=== PATIENT | female | born 1980 | race Caucasian/White ===

== ENCOUNTER 2017-03-27 09:36 | Outpatient (CLI) | payer BC ==
--- NOTE | 2017-03-27 15:11 | RAD ---
HYSTEREOSALPINGOGRAM: DATE: 03/27/17. HISTORY: Infertility. Assess tubal patency. FINDINGS: Jig Boring Machine Set Up Operator imaging of the pelvis is unremarkable. The uterus was catheterized using balloon catheter technique under sterile conditions. Contrast med ia is injected into the uterus outlining a normal uterine cavity and outlining normal-appearing bila teral fallopian tubes. There is prompt spill into the peritoneal cavity on the right. There is markedly delayed but eventu al spill from the left tube as well. IMPRESSION: Bilateral fallopian tubes are patent. There is preferential spill from the right tube with delayed spill on the left. POS: [facility]
[2017-03-27] MEDS ORDERED: Iopamidol 300 61% 30 ML VIAL ONE (15:51)
== END 2017-03-27 09:37 | disposition home or self-care (01) ==
LOC: RAD 09:36
PROVIDERS: ATTEND Student in an Organized Health Care Education/Training Program
DX: N97.9 Female infertility, unspecified (principal)
CPT/HCPCS: 58340; 74740

== ENCOUNTER 2017-05-04 09:08 | Outpatient (CLI) | payer BC ==
--- NOTE | 2017-05-04 10:31 | MRI ---
MRI LUMBAR SPINE: HISTORY: Lumbar radiculopathy, M54.16. TECHNIQUE: Multiplanar, multisequence noncontrast-enhanced MRI images of lumbar spine obtained. FINDINGS: T12-l1, L1-2, L2-3, L3-4, L4-5, L5-S1: Unremarkable. No evidence of disk herniations, spinal stenosis, or neural foraminal narrowing is seen. No signific ant evidence of osseous or disk pathology is seen. IMPRESSION: Normal MRI lumbar spine without evidence of significant lumbar spine pathology. POS: [facility]
== END 2017-05-04 09:09 | disposition home or self-care (01) ==
LOC: TBSIIMAG 09:08
PROVIDERS: ATTEND Neurological Surgery
DX: M54.16 Radiculopathy, lumbar region (principal)
CPT/HCPCS: 72148

== ENCOUNTER 2019-04-17 13:43 | Outpatient (CLI) | payer BC ==
[~2019-04-17 13:43] MED LIST: Magnevist 469MG/ML 20 ML VIAL ONE
--- NOTE | 2019-04-17 16:45 | MRI ---
BRAIN MRI WITH AND WITHOUT CONTRAST: 04/17/19 COMPARISON: 10/13/16 HISTORY: Re-evaluate benign neoplasm of pituitary gland. TECHNIQUE: Multiplanar and multisequence MR imaging of the brain is obtained with and without contrast using a p ituitary mass protocol. FINDINGS: There are numerous areas of cystic change in the region of the bilateral thalami and mid brain sugges ting numerous markedly prominent Virchow-Ramos spaces, slightly more conspicuous when compared to the study performed in 2017. The largest such cystic intra-axial lesions are seen within the dorsal aspe ct of the mid brain, right greater than left, measuring approximately 1.1 cm in AP dimension, minimal ly enlarged since the prior exam. There is slight narrowing of the third ventricle in this region. T he atria of the lateral ventricles are slightly enlarged when compared to the prior examination and t he frontal horns of the lateral ventricles are mildly prominent when compared to the prior examinatio n. This may reflect a mild degree of ventriculomegaly associated with compression of the third ventri macario secondary to the cystic mid brain lesions. The regional bone marrow signal intensity appears with in normal limits. The diffusion weighted imaging demonstrates no evidence for acute infarction. As seen on the prior examination, there is a subcentimeter hypoenhancing lesion within the posterolat eral aspect of the anterior lobe of the pituitary gland on the right measuring 3 mm, stable when comp ared to the prior examination. No abnormal intra-axial enhancement. IMPRESSION: 1. Findings suggesting a stable small right sided pituitary microadenoma. 2. Severely dilated Virchow-Ramos spaces in the brainstem and bilateral thalami, slightly more c onspicuous than on the prior examination. The lateral ventricles are slightly more prominent than on the prior examination which may be related to a degree of third ventricular compression associated wi th the above described dilated Virchow-Ramos spaces. Clinical correlation for degree of obstructive h ydrocephalus is thus required. Code T POS: OFF
== END 2019-04-17 13:44 | disposition home or self-care (01) ==
LOC: TBSIIMAG 13:43
PROVIDERS: ATTEND Neurological Surgery
DX: D35.2 Benign neoplasm of pituitary gland (principal); G93.89 Other specified disorders of brain
CPT/HCPCS: 70553; A9579

== ENCOUNTER 2019-06-19 08:08 | Outpatient (CLI) | payer BC ==
[2019-06-19 17:37] LABS: Hemoglobin 12.3 g/dL (12.0-16.0); Mean Corpuscular HGB CONC 31.4 g/dL (32.0-36.0); Mean Corpuscular Volume 86.1 fL (78.0-98.0); Mean Platelet Volume 7.8 fL (7.4-10.4); Platelet Count 294 thou/uL (130-400); Red Blood Cell (RBC) Count 4.56 mill/uL (4.20-5.40); White Blood Cell (WBC) Count 10.9 thou/uL (4.8-10.8)
[2019-06-19 17:44] LABS: Prothrombin Time 12.8 SEC (12.0-14.7)
== END 2019-06-19 08:09 | disposition home or self-care (01) ==
LOC: LABBT 08:08
PROVIDERS: ATTEND Neurological Surgery
DX: Z01.812 Encounter for preprocedural laboratory examination (principal); G91.9 Hydrocephalus, unspecified
CPT/HCPCS: 85027; 85610; 85730

== ENCOUNTER 2019-06-19 16:30 | Inpatient (IN) | payer BC ==
[2019-06-24] MEDS ORDERED: Lidocaine 0.5%/Epinephrine 1:200,000 50 ml Vial ONE (06:09)
[2019-06-24] MEDS ORDERED: Bacitracin Zinc Ointment 30 gm TUBE ONE (06:10)
[2019-06-24] MEDS ORDERED: Thrombin 5000 UNITS/5 ML VIAL ONE (06:10)
[2019-06-24] MEDS ORDERED: Midazolam HCl 2 mg/2 ml Vial ONE (06:25)
[2019-06-24] MEDS ORDERED: Scopolamine 1.5 mg/72 hour Patch ONE (06:33)
[2019-06-24] MEDS ORDERED: Fentanyl 100 MCG/2 ML VIAL ONE ×5 (06:39→11:31)
--- NOTE | 2019-06-24 07:19 | HP ---
CHIEF COMPLAINT: "I'm here for my third ventriculostomy." HISTORY OF PRESENT ILLNESS: Rashida is a 38-year-old woman, who has been followed for 8 years. In 2010, she was diagnosed with a lesion in her pituitary. She was treated with cabergoline, tumor shrank and stabilized. It has been stable for the last 8 years. She was asymptomatic from it. Ms. Bashir's current image shows ventricles have slowly enlarged in size and have fluid-filled spaces in her midbrain. There is enlarged Virchow-Ramos spaces progression. PAST MEDICAL HISTORY: Ms. Bashir's medical history is brain cyst, Andrew's thyroid, pituitary tumor, hypothyroidism, and carpal tunnel on the right. PAST SURGICAL HISTORY: In 2011, right carpal tunnel, wisdom teeth at the age of 15 and 16. FAMILY HISTORY: Father alive, diagnosed with diabetes. Mother alive, not stated. SOCIAL HISTORY: She drinks alcohol socially. She does not have children. She is . She drinks caffeine. She never smoked. She is sexually active. MEDICATIONS: 1. Synthroid 175 mcg. 2. Cabergoline 0.5 mg 2.5 tabs once a week. 3. Wellbutrin. 4. Sudafed. 5. Meclizine. REVIEW OF SYSTEMS: CONSTITUTIONAL: Denies fevers, chills, weight loss, night sweats, or loss of energy. HEENT: Denies double vision, blurred vision, or difficulty swallowing. CARDIOVASCULAR/RESPIRATORY: Denies chest pain, shortness of breath, or cough. GASTROINTESTINAL: Denies indigestion, vomiting, or black stool. GENITOURINARY: Denies burning urination, blood in urine, or incontinence. MUSCULOSKELETAL: Denies leg or arm pain. NEUROLOGICAL: No cranial neuropathy noted. Visual lopez are full. Extraocular muscles move the eye in all direction of gaze without nystagmus. The face is sensated and symmetric. Ears work normally. Palate moves normal. The tongue moves normally. There are no lateralization, motor or sensory deficits. There is no pronator drift. There is no neglect. PSYCHIATRIC: Denies anxiety, hallucinations, personality changes or crying. PHYSICAL EXAMINATION: VITAL SIGNS: Weight is 222, height 64 inches. ALLERGIES: N.K.D.A. IMAGING DATA: Increase in size of fluid-filled spaces in the thalamus of her midbrain and now into the asad. There is marked difference from 2011. Now, the ventricles are larger, especially the lateral and third ventricles. The fourth ventricle is about the same size. ASSESSMENT: Ms. Bashir has hydrocephalus and form involves enlargement of her Virchow-Ramos spaces in the brain itself as well as the ventricles. 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 PLAN: Surgical intervention for third ventriculostomy. Informed consent discussed with the patient, indications, risks, benefits, alternatives, and expected outcomes from endoscopic third ventriculostomy. The risks that were discussed include, but were not limited to, bleeding, brain damage, stroke, paralysis, seizures, blindness, loss of short-term memory, loss of speech, loss of other significant neurological functions, dependent for care, cardiopulmonary, complications of anesthesia, and . Job ID: [id number] [facility]
[2019-06-24] MEDS ORDERED: Promethazine HCl 12.5 MG SUPP PR PRN (09:29)
[2019-06-24] MEDS ORDERED: Promethazine 25 MG TAB PO PRN (09:29)
[2019-06-24] MEDS ORDERED: Acetaminophen 650 MG Suppository PR PRN (09:29)
[2019-06-24] MEDS ORDERED: Cepastat Lozenges 1 LOZ PO PRN (09:29)
[2019-06-24] MEDS ORDERED: diphenhydrAMINE 50 MG/ML VIAL IVP PRN (09:29)
[2019-06-24] MEDS ORDERED: hydrALAZINE 20 MG/ML VIAL SLOW IVP PRN (09:29)
[2019-06-24] MEDS ORDERED: diphenhydrAMINE 50 MG CAP PO PRN (09:29)
[2019-06-24] MEDS ORDERED: Promethazine HCl 25 MG/ML VIAL IM PRN ×2 (09:29→09:44)
[2019-06-24] MEDS ORDERED: Labetalol HCl 100 MG/20 ML VIAL SLOW IVP PRN (09:29)
[2019-06-24] MEDS ORDERED: Promethazine HCl 25 MG/ML VIAL SLOW IVP PRN (09:44)
[2019-06-24] MEDS ORDERED: PACU-Morphine 4MG/ML VIAL SLOW IVP PRN (09:44)
[2019-06-24] MEDS ORDERED: HYDROmorphone 2 MG/ML VIAL SLOW IVP PRN (09:44)
[2019-06-24] MEDS ORDERED: Morphine Sulfate 2 MG/ML SYRINGE SLOW IVP PRN (09:44)
[2019-06-24] MEDS ORDERED: Ondansetron HCl/PF 4 MG/2 ML Vial IVP PRN (09:44)
[2019-06-24] MEDS ORDERED: Promethazine HCl 25 MG/ML VIAL ONE (10:23)
--- NOTE | 2019-06-24 11:30 | OP ---
DATE OF PROCEDURE: 06/24/2019 MANUFACTURING INTERN: Danilo Coburn PA-C PREOPERATIVE INDICATION: Prevent neurological deterioration. PREOPERATIVE DIAGNOSES: 1. Aqueductal stenosis. 2. Enlargement of brain perivascular spaces with cerebrospinal fluid. 3. Hydrocephalus variant. POSTOPERATIVE DIAGNOSES: 1. Aqueductal stenosis. 2. Enlargement of brain perivascular spaces with cerebrospinal fluid. 3. Hydrocephalus variant. OPERATIVE PROCEDURES: 1. Endoscopic third ventriculostomy. 2. Placement of external ventricular drain. 3. [employer] stereotactic navigation. PREOPERATIVE MEDICATION: Ancef 2 g IV. DRAIN NUMBER: One. DRAIN TYPE: External ventricular. OPERATIVE DICTATION: The patient was brought to the operating room. General endotracheal anesthesia was induced. The patient was positioned supine on the operating table and her head immobilized with Castrejon pin and supervisor heading. Using the [facility] system and a [facility] protocol, CT scan done before surgery. We mapped the patient's surface to create 3-dimensional navigational space around her head. We verified our registration with surface landmarks and found it to be very accurate. We planned a jaxon hole in line with the mid portion of the pupil on the right side just at the coronal suture. We removed hair over this part of the scalp. We infused local anesthetic in our planned incisions. The scalp was sterilely prepped and draped. We opened a curvilinear incision with a small flap facing forward. We controlled bleeding with bipolar and monopolar cautery. We dissected to the periosteal layer and placed a self-retaining retractor beneath the flap. Using a high-speed drill and a perforating bit, we placed a jaxon hole right at the coronal suture. We waxed the bone edges and then coagulated the dura. The dura was incised in a cruciate fashion and we opened, exposing the brain and agustín beneath, where there was an avascular space of agustín. We gently coagulated it and then incised the agustín. Using our [facility] navigation wand, we chose our trajectory to access the frontal horn of the right lateral ventricle. We navigated as we introduced our ventricular sheath into the right lateral ventricle. There was brisk CSF flow. We brought our neuroendoscope and passed it through the sheath into the ventricular system. We advanced the sheath within a few millimeters of the foramen of Monro, and then stapled the sheath to either side of our exposure. We then reintroduced the brain scope. The brain scope made its way easily through the foramen of Monro into the third ventricle. The mammillary bodies were easily visualized as was the infundibular recess. There was a thin portion of the floor of the third ventricle between the infundibular recess and the mamillary bodies, through which we could see. I did not see any vessels beneath. When alligator-shaped instrument was advanced through the endoscope to the floor of the third ventricle, it was passed through the floor, the mouths were widened and then it was withdrawn. This was done in a 360-degree fashion to create an ample third ventriculostomy. The scope was then advanced through the third ventriculostomy just enough to see the basilar artery, the front of the asad in the fact there were no obstructions to CSF flow in the prepontine cistern. The scope was then removed, and we measured using our sheath the distance to the foramen of Monro, which was about 6 cm from the skull surface. An external ventricular drain was advanced to the appropriate depth and then the sheath was withdrawn. This drain was tunneled posteriorly through a separate stab incision and connected to the Blanco drainage device. We irrigated copiously with bacitracin irrigation. A tiny amount of blood emanated through the ventricular drain, but it washed away very quickly within seconds. There was no further blood in the CSF that we could visualize. We placed a jaxon hole cover over the jaxon hole we had created. We irrigated with bacitracin irrigation. We closed the wound in anatomical layers and we tacked down the external ventricular drain at the exit point. We placed a sterile dressing and wrapped the head. We ensured the Blanco drainage system had brisk CSF flow before waking the patient. Job ID: [id number]
[2019-06-24] MEDS: Morphine 2 MG/ML SYRINGE SLOW IVP PRN ×6 (12:48→22:58)
[2019-06-24] MEDS: Sodium Chloride 0.9% 1,000 ML IV SCH ×2 (12:51→21:52)
[2019-06-24 13:02] VITALS: BMI 38.3
[2019-06-24] MEDS: Acetaminophen 325 MG TAB PO PRN ×2 (13:27→22:35)
[2019-06-24] MEDS: CEFAZOLIN 2 GM in Premix Bag 1 BAG IVPB SCH ×2 (13:49→21:16)
[2019-06-24] MEDS ORDERED: Lidocaine 1% PF 5 ML VIAL ONE ×2 (14:38)
[2019-06-24] MEDS ORDERED: Glycopyrrolate 0.2 MG/ML 5 ML SYRINGE ONE (14:38)
[2019-06-24] MEDS ORDERED: Rocuronium Bromide 10 MG/ML (10ML VIAL) ONE (14:38)
[2019-06-24] MEDS ORDERED: Esmolol 100 MG/10 ML VIAL ONE (14:38)
[2019-06-24] MEDS ORDERED: Dexamethasone 20 MG/5 ML VIAL ONE (14:38)
[2019-06-24] MEDS ORDERED: Ondansetron PF 4 MG/2 ML Vial ONE (14:38)
[2019-06-24] MEDS ORDERED: PROPOFOL 200 MG/20 ML VIAL ONE (14:38)
[2019-06-24] MEDS: Ondansetron PF 4 MG/2 ML Vial IVP PRN (17:39)
[2019-06-25] MEDS: Morphine 2 MG/ML SYRINGE SLOW IVP PRN ×2 (00:04→14:09)
--- NOTE | 2019-06-25 01:26 | CON ---
DATE OF CONSULTATION: 06/24/2019 HISTORY OF PRESENT ILLNESS: Rashida Bashir is a pleasant 38-year-old female who had an external ventricular drain placed today. She has a history of having a pituitary tumor according to her that has been followed for many years. She recently developed ventriculomegaly, so surgery was recommended. PAST MEDICAL HISTORY: Remarkable for Andrew thyroiditis, pituitary tumor, hypothyroidism, and carpal tunnel syndrome on the right in 2011. FAMILY HISTORY: There is family history of diabetes. SOCIAL HISTORY: Drinks occasionally. She is nonsmoker. She is . Her is in the room, very pleasant, cooperative. MEDICATIONS: Prior to admission, she is on; 1. Synthroid. 2. Cabergoline. 3. Wellbutrin. 4. Sudafed. 5. Meclizine. REVIEW OF SYSTEMS: A 10-point review of systems is remarkable only for headache at this time. I saw her today. She said it was 7 on a 10 scale. PHYSICAL EXAMINATION: VITAL SIGNS: Blood pressure this evening is 110/65, heart rate 85, respiratory rate is 20, and oximetry is 94. HEENT: Pupils are equal. Sclerae anicteric. NECK: Supple. No lymphadenopathy. LUNGS: Clear. HEART: Regular rhythm. S1 and S2 are normal. ABDOMEN: Soft and nontender. EXTREMITIES: Without clubbing, cyanosis, or edema. LABORATORY DATA: There is no new lab. IMPRESSION: Status post external ventricular drain, clinically stable with the only problem reported is headache as expected. Job ID: [id number]
[2019-06-25] MEDS: CEFAZOLIN 2 GM in Premix Bag 1 BAG IVPB SCH ×2 (06:10→13:17)
--- NOTE | 2019-06-25 07:46 | PRG ---
DATE OF SERVICE: 06/25/2019 I saw Ms. Bashir this morning in the ICU. Her drain was opened for the first hour after surgery but has not been opened overnight. She has had some nausea and a bit of headache but otherwise feels well. Among the electronically recorded vital signs, I do not see any fevers. Her blood pressures have been in the 90s to 100s. Her ICP has been elevated with the second shift of nursing yesterday, but I found that the ICP transducer was about 7 cm below the external auditory canal. I raised it and her ICP went to 7. Neurologically I do not find any new deficits. We removed the drain by prepping the skin with Betadine, snipping all drain holding sutures and then placing a staple at the exit point of the drain after it was removed. She tolerated the procedure well. Ms. Bashir can start getting out of bed, would sit at bedside for about 5 minutes, stand for a minute and then walk with assistance at first. If she is safe for all other activities of daily living (voiding when the Joshi catheter is out, eating, drinking, toileting, dressing, and walking), then she can be discharged at noon time. Followup arrangements have been made already. I went over wound care and activity restrictions. She verbalized her understanding. Job ID: [id number]
[2019-06-25] MEDS ORDERED: traMADol HCl 50 MG TAB PO PRN (08:23)
[2019-06-25] MEDS ORDERED: Acetaminophen/Codeine 30-300mg Tablet PO PRN (12:39)
[2019-06-25] MEDS: Sodium Chloride 0.9% 1,000 ML IV SCH (13:18)
[2019-06-25] MEDS: Ondansetron PF 4 MG/2 ML Vial IVP PRN (14:08)
[2019-06-25] MEDS ORDERED: Ondansetron PF 4 MG/2 ML Vial IVP PRN (15:40)
--- NOTE | 2019-06-25 15:49 | PRG ---
DATE OF SERVICE: 06/25/2019 SUBJECTIVE: Ms. Bashir has had her ventricular drain removed. OBJECTIVE: VITAL SIGNS: Blood pressure 117/54, heart rate 89, respiratory rate 21, oximetry is 98%. LUNGS: Unchanged. HEART: Unchanged. ABDOMEN: Unchanged. She had tramadol for pain earlier with no relief. She has taken Tylenol No. 3 for knee surgery in the past and wants to try this. Family is nervous about going home today [place] I have put an order in for Tylenol No. 3. I will defer to the neurosurgical team about timing of discharge. Job ID: [id number]
[2019-06-25] MEDS: Ibuprofen 800 MG TAB PO PRN (17:13)
[2019-06-26] MEDS: Ibuprofen 800 MG TAB PO PRN ×2 (04:07→08:35)
[2019-06-26 05:00] VITALS: TEMP 98.5
[2019-06-26] MEDS: Sodium Chloride 0.9% 1,000 ML IV SCH (07:21)
--- NOTE | 2019-06-26 07:57 | PRG ---
DATE OF SERVICE: 06/26/2019 Ms. Bashir was seen this morning. She is 2 days out from endoscopic third ventriculostomy. Her analgesics yesterday were making her nauseated. When she was switched to Advil, the nausea dissipated and the pain was still under relatively good control. Overnight, the vitals have been stable and the neurological examination is as well. Ms. Bashir can be discharged today. Followup will be in 2 weeks. Job ID: [id number]
== END 2019-06-26 09:09 | disposition home or self-care (01) | DRG 27 ==
LOC: SURG A 06-24 05:47 → CCU 06-24 12:25 → EEVIPCON 06-24 16:30
PROVIDERS: ADMIT Neurological Surgery; ATTEND Neurological Surgery
PROC: 009600Z Drainage of Cerebral Ventricle with Drainage Device, Open Approach (ICD-10-PCS; principal; 2019-06-24)
PROC: 8E09XBZ Computer Assisted Procedure of Head and Neck Region (ICD-10-PCS; 2019-06-24)
PROC: 00164ZB Bypass Cerebral Ventricle to Cerebral Cisterns, Percutaneous Endoscopic Approach (ICD-10-PCS; 2019-06-24)
DX: Q03.0 Malformations of aqueduct of Sylvius (principal); G93.89 Other specified disorders of brain; E03.9 Hypothyroidism, unspecified; G93.0 Cerebral cysts; Z83.3 Family history of diabetes mellitus
CPT/HCPCS: C1713; J0690; J1100; J2001; J2250; J2270; J2405; J2550; J2704; J3010; J3490; Q0169

== ENCOUNTER 2019-06-20 10:19 | Outpatient (CLI) | payer BC ==
--- NOTE | 2019-06-20 11:21 | CT ---
Exam: Noncontrast head CT HISTORY: Brain lab protocol. Hydrocephalus. COMPARISON: None. CORRELATION: Brain MRI 04/17/2019. FINDINGS: No parenchymal hemorrhage. No extra-axial hematoma. No midline shift. Basilar cisterns are patent. Br ain volume, age-appropriate. Cortical lemus-white matter differentiation is preserved. Stable configuration of the ventricular system. Stable hypodensities in bilateral thalami, as well as the left and right aspect of the midbrain and asad as well as the central aspect of the asad. These hypodensities correspond to previously described severely dilated Virchow-Ramos spaces. Calvarium is intact. Adequate aeration of the sinuses and mastoid air cells. IMPRESSION: Multiple hypodensities involving the brainstem and thalami compatible with severely dilated Virchow-R obin spaces. Transcribed Date/Time: 06/20/2019 12:28 PM
== END 2019-06-20 10:20 | disposition home or self-care (01) ==
LOC: TBSIIMAG 10:19
PROVIDERS: ATTEND Neurological Surgery
DX: G91.9 Hydrocephalus, unspecified (principal); R94.02 Abnormal brain scan
CPT/HCPCS: 70460

== ENCOUNTER 2019-09-11 10:39 | Outpatient (CLI) | payer BC ==
--- NOTE | 2019-09-11 18:00 | MRI ---
MRI OF BRAIN WITHOUT CONTRAST: 09/11/19 INDICATIONS: Follow-up hydrocephalus. COMPARISON: Comparison made to prior MRI brain 04/17/19. That exam described numerous cystic foci seen in the thal ami and mid brain consistent with enlarged Virchow-Ramos spaces. There was mild compression on the th ird ventricle noted on that study and mild prominence of the lateral ventricles was described. FINDINGS: On today's exam, the numerous cystic foci are again seen in the thalami and mid brain, unchanged in s ize and appearance when compared to prior study. The lateral ventricles are slightly smaller today. The atria previously were measured at 16 mm width in the axial T2 image. Same measurement today is recorded at 12 to 13 mm. The anterior horns are slig htly smaller today. No evidence of restricted diffusion. No mass or edema. Ventriculostomy via the right frontal lobe is noted. Ventriculostomy catheter is not well demonstrate d on MRI; however, the tract and defect is seen through the right frontal lobe into the right lateral ventricle. Mild cerebellar tonsillar ectopia on the sagittal image again noted. IMPRESSION: 1. The numerous cystic lesions in the thalami and mid brain are unchanged in appearance. 2. Ventricles are slightly smaller when compared to 04/17/19 and appear within normal range today . POS: [facility]
== END 2019-09-11 10:40 | disposition home or self-care (01) ==
LOC: SCSMRI 10:39
PROVIDERS: ATTEND Surgery
DX: G91.9 Hydrocephalus, unspecified (principal); G93.0 Cerebral cysts
CPT/HCPCS: 70551

== ENCOUNTER 2020-04-16 13:46 | Outpatient (CLI) | payer BC ==
[2020-04-16] MEDS ORDERED: Magnevist 469MG/ML 20 ML VIAL ONE (13:55)
--- NOTE | 2020-04-16 15:08 | MRI ---
MRI OF THE BRAIN WITH AND WITHOUT CONTRAST: 04/16/20 INDICATIONS: Hydrocephalus. Comparison made to prior MRI of brain dated 04/17/19 and 09/11/19. FINDINGS: The numerous cystic lesions again seen in the basal ganglia and mid brain consistent with dilated Vir cooper-Ramos spaces again noted. These have been previously described. Ventricle size remains relativel y stable from 09/11/19. The posterior horns may be minimally smaller today when compared to 09/11/19. Width in the FLAIR seque nce measures 1.3cm today with prior measurement approximately 1.4 cm. Size and appearance of the cystic spaces do not appear significantly changed. There continues to be e vidence of mild compression of the third ventricle. No abnormal enhancement. There are postop changes in the right frontal bone consistent with prior craniotomy procedure and cat heter placement. There is some FLAIR signal changes along the course of this catheter which is not we ll delineated but appears to extend to the lateral ventricle on the right. IMPRESSION: Dilated Virchow-Ramos spaces are again noted. These are unchanged in size and appearance and continue s to compress the third ventricle. There has been continued reduction in size of the lateral ventricles when compared to the prior exam as noted above. POS: [facility]
== END 2020-04-16 13:47 | disposition home or self-care (01) ==
LOC: TBSIIMAG 13:46
PROVIDERS: ATTEND Neurological Surgery
DX: G91.9 Hydrocephalus, unspecified (principal)
CPT/HCPCS: 70553; A9579

== ENCOUNTER 2021-04-23 07:10 | Day surgery (SDC) | payer BC ==
[2021-04-22 09:50] VITALS: BMI 38.0
[2021-04-23 07:40] VITALS: TEMP 97.8
[2021-04-23 09:47] LABS: Color Of CSF Supernatant COLORLESS (Colorless); Tube # 2; Unspun CSF Color COLORLESS (Colorless)
[2021-04-23 09:48] LABS: CSF RBC Count - Manual 0 /cu.mm (None Seen); CSF Source CSF; CSF WBC/NonHematics Count-Man 1 /cu.mm (0-5); Clarity Clear (Clear); Tube # 4
[2021-04-23 10:04] LABS: CSF, Glucose 56 mg/dl (40-70); CSF, Protein 24 mg/dL (15-40)
[2021-04-23 10:09] VITALS: BP 137/89
[2021-04-23 12:58] LABS: Ref Lab Test Ordered IGG INDEX; Reference Lab Name LABCORP
== END 2021-04-23 10:09 | disposition home or self-care (01) ==
LOC: RAD 07:10
PROVIDERS: ATTEND Neurological Surgery
PROC: 009U3ZX Drainage of Spinal Canal, Percutaneous Approach, Diagnostic (ICD-10-PCS; principal; 2021-04-23)
DX: G91.9 Hydrocephalus, unspecified (principal); H54.7 Unspecified visual loss; E03.9 Hypothyroidism, unspecified; G93.0 Cerebral cysts; Z79.899 Other long term (current) drug therapy
CPT/HCPCS: 62270; 82945; 83916; 84157; 87070; 87205; 89051

== ENCOUNTER 2021-05-17 13:11 | Outpatient (CLI) | payer BC | END 2021-05-17 13:12 | disposition home or self-care (01) | LOC: TBSIIMAG 13:11 | PROVIDERS: ATTEND Neurological Surgery | DX: G91.9 Hydrocephalus, unspecified (principal) | CPT/HCPCS: 70551 ==

== ENCOUNTER 2022-04-26 13:53 | Outpatient (CLI) | payer BC | END 2022-04-26 13:54 | disposition home or self-care (01) | LOC: TBSIIMAG 13:53 | PROVIDERS: ATTEND Neurological Surgery | DX: G93.0 Cerebral cysts (principal); R20.2 Paresthesia of skin | CPT/HCPCS: 70553; A9579 ==

== ENCOUNTER 2022-12-19 11:37 | Outpatient (CLI) | payer BC | END 2022-12-19 11:38 | disposition home or self-care (01) | LOC: SCSMRI 11:37 | PROVIDERS: ATTEND Neurological Surgery | DX: G91.9 Hydrocephalus, unspecified (principal); M47.812 Spondylosis without myelopathy or radiculopathy, cervical region | CPT/HCPCS: 70553; 72050; 72141 ==